=== PATIENT | female | born 2000 | race Caucasian/White ===

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

== ENCOUNTER 2022-01-15 14:44 | Emergency (ER) | payer OTHER ==
[~2022-01-15] VITALS: Ht 162.6 cm; Wt 63.5 kg
[2022-01-15] MEDS ORDERED: OSEL75CA PO (19:41)
== END 2022-01-15 20:23 | disposition home or self-care (01) ==
LOC: EMR PED 14:44 → ER 14:45
DX: J10.1 Influenza due to other identified influenza virus with other respiratory manifestations (principal); Z20.822 Contact with and (suspected) exposure to COVID-19